=== PATIENT | female | born 1965 | race Caucasian/White ===

== ENCOUNTER 2018-08-26 13:52 | Outpatient (CLI) | payer BC ==
[~2018-08-26 13:52] MED LIST: Gadobenate Dimeglumine 529 MG/1 ML (20ML VIAL) ONE
--- NOTE | 2018-08-26 15:52 | MRI ---
MRI BRAIN WITH AND WITHOUT IV CONTRAST: HISTORY: Migraine with aura. COMPARISON: None. FINDINGS: No restricted diffusion is seen. No evidence of infarct, hemorrhage mass, midline shift, or abnormal extraaxial fluid collections is noted. There is linear post contrast enhancement in the left fronta l lobe, consistent with venous angioma/DVA. There is a small subcentimeter focus of vascular blush i n the right parafalcine frontal lobe with associated hemosiderin on GRE from remote hemorrhage. This may be due to a cavernoma or capillary telangiectasia. The ventricular size is normal, and the basila r cisterns are patent. There is mild mucosal disease in the paranasal sinuses. No fluid is seen in the mastoid air cells. IMPRESSION: 1. 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 2. 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 3. Mild paranasal sinus disease. POS: [facility]
== END 2018-08-26 13:53 | disposition home or self-care (01) ==
LOC: BICMRI 13:52
PROVIDERS: ATTEND Nurse Practitioner Acute Care
DX: G43.109 Migraine with aura, not intractable, without status migrainosus (principal); J32.9 Chronic sinusitis, unspecified
CPT/HCPCS: 70553; A9577

== ENCOUNTER 2021-09-06 13:19 | Outpatient (CLI) | payer BC | END 2021-09-06 13:20 | disposition home or self-care (01) | LOC: BICCT 13:19 | PROVIDERS: ATTEND Family Medicine | DX: Z12.31 Encounter for screening mammogram for malignant neoplasm of breast (principal); Z12.2 Encounter for screening for malignant neoplasm of respiratory organs; Z87.891 Personal history of nicotine dependence | CPT/HCPCS: 71271; 77063; 77067 ==

== ENCOUNTER 2021-09-08 08:59 | Outpatient (CLI) | payer BC | END 2021-09-08 09:00 | disposition home or self-care (01) | LOC: CT 08:59 | PROVIDERS: ATTEND Student in an Organized Health Care Education/Training Program | DX: E21.3 Hyperparathyroidism, unspecified (principal); E04.1 Nontoxic single thyroid nodule; J34.1 Cyst and mucocele of nose and nasal sinus | CPT/HCPCS: 70492 ==

== ENCOUNTER 2021-11-03 13:49 | Outpatient (CLI) | payer BC | END 2021-11-03 13:50 | disposition home or self-care (01) | LOC: LABBT 13:49 | PROVIDERS: ATTEND Orthopaedic Surgery | DX: Z01.818 Encounter for other preprocedural examination (principal); D35.1 Benign neoplasm of parathyroid gland; E21.3 Hyperparathyroidism, unspecified; R22.1 Localized swelling, mass and lump, neck; M81.0 Age-related osteoporosis without current pathological fracture; N20.0 Calculus of kidney; Z20.822 Contact with and (suspected) exposure to COVID-19 | CPT/HCPCS: 85014; 87811; 93005; 93010 ==

== ENCOUNTER 2021-11-08 07:38 | Observation (INO) | payer BC ==
[2021-11-04 10:30] VITALS: BMI 26.5
[2021-11-08] MEDS ORDERED: Lidocaine 1% w/Epinephrine 1:100K 20 ML VIAL ONE (09:24)
[2021-11-08] MEDS ORDERED: fentaNYL Citrate/PF 100 MCG/2 ML SYRINGE ONE (09:28)
[2021-11-08] MEDS ORDERED: Midazolam HCl 2 mg/2 ml Vial ONE (09:31)
[2021-11-08] MEDS ORDERED: Dexamethasone 20 MG/5 ML VIAL ONE (09:39)
[2021-11-08] MEDS ORDERED: Lidocaine 1% PF 5 ML VIAL ONE (09:39)
[2021-11-08] MEDS ORDERED: ePHEDrine 50 MG/ML VIAL ONE (09:39)
[2021-11-08] MEDS ORDERED: Phenylephrine 10 MG/ML VIAL ONE (09:39)
[2021-11-08] MEDS ORDERED: Rocuronium Bromide 10 MG/ML (10ML VIAL) ONE (09:39)
[2021-11-08] MEDS ORDERED: PROPOFOL 200 MG/20 ML VIAL ONE (09:39)
[2021-11-08] MEDS ORDERED: Glycopyrrolate 0.2 MG/ML 5 ML SYRINGE ONE (09:39)
[2021-11-08] MEDS ORDERED: Ondansetron PF 4 MG/2 ML Vial ONE ×2 (09:39→20:08)
[2021-11-08] MEDS ORDERED: Fentanyl 100 MCG/2 ML VIAL ONE ×3 (12:02→15:55)
[2021-11-08] MEDS ORDERED: Ondansetron PF 4 MG/2 ML Vial IVP PRN (12:56)
[2021-11-08] MEDS ORDERED: Calcitriol 0.25 MCG CAP PO SCH (13:00)
[2021-11-08] MEDS ORDERED: CEFAZOLIN 2 GM in Sodium Chloride 0.9% 100 ML IVPB SCH (13:00)
[2021-11-08] MEDS: Calcium Carbonate 500 MG ChewTAB PO SCH ×2 (16:25→20:03)
[2021-11-08] MEDS: Lactated Ringer's 1,000 ML IV SCH ×2 (19:56)
[2021-11-08] MEDS: Morphine 2 MG/ML VIAL SLOW IVP PRN (19:59)
[2021-11-08] MEDS: Acetaminophen 325 MG TAB PO PRN (20:03)
[2021-11-09] MEDS: Morphine 2 MG/ML VIAL SLOW IVP PRN ×3 (00:22→08:28)
[2021-11-09] MEDS: Acetaminophen 325 MG TAB PO PRN (04:42)
[2021-11-09] MEDS: Calcium Carbonate 500 MG ChewTAB PO SCH (08:28)
[2021-11-09] MEDS: Lactated Ringer's 1,000 ML IV SCH (08:32)
[2021-11-09] MEDS ORDERED: Calcitriol 0.25 MCG CAP PO SCH (09:00)
[2021-11-09 10:12] VITALS: BP 120/76; TEMP 98.1
== END 2021-11-09 10:47 | disposition home or self-care (01) ==
LOC: SDC 07:38 → T4-A 12:03
PROVIDERS: ADMIT Student in an Organized Health Care Education/Training Program; ATTEND Student in an Organized Health Care Education/Training Program
PROC: 0GTP0ZZ Resection of Left Inferior Parathyroid Gland, Open Approach (ICD-10-PCS; principal; 2021-11-08)
DX: E21.3 Hyperparathyroidism, unspecified (principal); D35.1 Benign neoplasm of parathyroid gland; N20.0 Calculus of kidney; M81.0 Age-related osteoporosis without current pathological fracture; E78.5 Hyperlipidemia, unspecified; J44.9 Chronic obstructive pulmonary disease, unspecified; Z87.891 Personal history of nicotine dependence; Z79.899 Other long term (current) drug therapy; Z88.5 Allergy status to narcotic agent; Z91.048 Other nonmedicinal substance allergy status
CPT/HCPCS: 82310; 83970; 88305; 88331; 88334; 96374; 96375; 96376; C1713; C1776; G0378; J1100; J2250; J2270; J2370; J2405; J2704; J2710; J3010; J3490; J7120

== ENCOUNTER 2024-03-03 07:45 | Outpatient (CLI) | payer BC | END 2024-03-03 07:46 | disposition home or self-care (01) | LOC: BICMAMMO 07:45 | PROVIDERS: ATTEND Family Medicine | DX: Z12.31 Encounter for screening mammogram for malignant neoplasm of breast (principal); Z91.89 Other specified personal risk factors, not elsewhere classified | CPT/HCPCS: 77063; 77067 ==